=== PATIENT | male | born 1950 | race Caucasian/White ===

== ENCOUNTER 2020-06-16 11:41 | Day surgery (SDC) | payer OTHER, SELFPAY ==
[2020-06-09 09:29] VITALS: BMI 23.9
--- NOTE | 2020-06-11 15:26 | P.CONAN_ITS ---
Documented by User: Alisha Argueta 06/11/20 15:27 HPI - Anesthesia Eval Consult details Narrative: 69yo M for EGD and Colonoscopy [facility] Past Medical History Medical History Arthritis COPD (chronic obstructive pulmonary disease) Cough Former cigarette smoker GERD (gastroesophageal reflux disease) Headache High cholesterol History of anxiety History of Roblero's esophagus History of depression Hx of nephrolithotomy with removal of calculi Hx of pneumococcal pneumonia Hx of renal calculi Hypertension Left shoulder pain ADELFO on CPAP Pneumonia PPD positive, treated Surgical History Surgical History (Updated 06/09/20 @ 09:19 by Soniya Fan) Hx of appendectomy S/P left rotator cuff repair Social History Social History Smoking Status: Former smoker Smoking Quit Date: 1996 Use of substances other than those prescribed or required for medical reasons: No Have you been hit, kicked, punched, or otherwise hurt by someone within the past year? If so, by whom?: No Advance Directives: No Advance Directives Information Provided: No Advance Directives on File: No Recently lost weight without trying: No Meds Allergies Allergy/AdvReac Type Severity Reaction Status Date / Time Penicillins [PENICILLINS] Allergy Severe HANNA Verified 06/16/20 12:24 ESSENCE SYNDROME Sulfa (Sulfonamide Allergy Severe HANNA Verified 06/16/20 12:24 Antibiotics) ESSENCE [SULFA (SULFONAMIDE SYNDROME ANTIBIOTICS)] Home Medications Medication Instructions Recorded Confirmed Type acetaminophen 500 mg PO Q6H PRN 06/09/20 06/09/20 History albuterol mcg INHALATION 06/09/20 History clonazepam 0.5 mg PO DAILY 06/09/20 06/09/20 History gabapentin 600 mg PO BEDTIME 06/09/20 06/09/20 History magnesium oxide 240 mg 06/09/20 History meloxicam 15 mg PO DAILY 06/09/20 06/09/20 History omeprazole 20 mg PO DAILY 06/09/20 06/09/20 History quetiapine 100 mg PO DAILY 06/09/20 06/09/20 History sertraline 100 mg PO DAILY 06/09/20 06/09/20 History simvastatin 80 mg PO BEDTIME 06/09/20 06/09/20 History tiotropium bromide [Spiriva 2 puff INHALATION DAILY 06/09/20 06/09/20 History Respimat] tramadol 50 mg PO Q6H PRN 06/09/20 06/09/20 History Exam Exam Date and Time: June 11, 2020 1526 Height,Weight and Vital Signs: Height 5 ft 9 in Weight 73.482 kg Assessment and Plan Assessment Anesthesia Assessment: Chart Reviewed Documented by User: Sriram Beaver MD 06/16/20 12:30 [facility] Past Medical History Medical History Arthritis COPD (chronic obstructive pulmonary disease) Cough Former cigarette smoker GERD (gastroesophageal reflux disease) Headache High cholesterol History of anxiety History of Roblero's esophagus History of depression Hx of nephrolithotomy with removal of calculi Hx of pneumococcal pneumonia Hx of renal calculi Hypertension Left shoulder pain ADELFO on CPAP Pneumonia PPD positive, treated Surgical History Surgical History (Updated 06/09/20 @ 09:19 by Soniya Fan) Hx of appendectomy S/P left rotator cuff repair Social History Social History Smoking Status: Former smoker Smoking Quit Date: 1996 Use of substances other than those prescribed or required for medical reasons: No Have you been hit, kicked, punched, or otherwise hurt by someone within the past year? If so, by whom?: No Advance Directives: No Advance Directives Information Provided: No Advance Directives on File: No Recently lost weight without trying: No Meds Allergies Allergy/AdvReac Type Severity Reaction Status Date / Time Penicillins [PENICILLINS] Allergy Severe HANNA Verified 06/16/20 12:24 ESSENCE SYNDROME Sulfa (Sulfonamide Allergy Severe HANNA Verified 06/16/20 12:24 Antibiotics) ESSENCE [SULFA (SULFONAMIDE SYNDROME ANTIBIOTICS)] Home Medications Medication Instructions Recorded Confirmed Type acetaminophen 500 mg PO Q6H PRN 06/09/20 06/09/20 History albuterol mcg INHALATION 06/09/20 History clonazepam 0.5 mg PO DAILY 06/09/20 06/09/20 History gabapentin 600 mg PO BEDTIME 06/09/20 06/09/20 History magnesium oxide 240 mg 06/09/20 History meloxicam 15 mg PO DAILY 06/09/20 06/09/20 History omeprazole 20 mg PO DAILY 06/09/20 06/09/20 History quetiapine 100 mg PO DAILY 06/09/20 06/09/20 History sertraline 100 mg PO DAILY 06/09/20 06/09/20 History simvastatin 80 mg PO BEDTIME 06/09/20 06/09/20 History tiotropium bromide [Spiriva 2 puff INHALATION DAILY 06/09/20 06/09/20 History Respimat] tramadol 50 mg PO Q6H PRN 06/09/20 06/09/20 History Exam Airway Mallampati Class: II TM Dist: >3cm Neck ROM: Full Denture: Upper and Lower Heart: rrr Lungs: nl Other: ao Assessment and Plan Assessment Anesthesia Assessment: Anesthesia Plan Discussed and Chart Reviewed Final Anesthetic Review NPO: Yes ASA Class: III Final Preanesthetic Review: No Changes in Pt Med Stat, Meds/Allgs Chart Reviewed, Consent Obtained/Reviewed and Anes Risks/Benef Reviewed Patient Risk: Intermediate Procedure Risk: Intermediate Anesthetic Plan Anesthetic Plan: MAC: Disposition: Standard PACU
[2020-06-16 12:19] VITALS: BP 127/76; PULSE 61; RESP 18; TEMP 36.3; O2SAT 96
[2020-06-16] MEDS: Lactated Ringers 1,000 ML 100 ML IVCONT (12:28)
--- NOTE | 2020-06-16 13:51 | MHC.SHP ---
Pre-Procedural Eval Section B Chief Complaint: Screening, Chronic Horseness Details of Present Illness: EGD followup Roblero's esophagus--Increased GERD sx Colon cancer screening Moderate dyspnea, COPD Relevant Family History (Specify if Yes): No Relevant Social History: Tobacco Use (current non smoker) Present Medications: see Short Stay Collaborative assessment Medical History: Significant History (Copd with chronic bronchitis, Anxiety, GERD, Hypertension) History of Previous Operations: No relevant previous surgery Allergies: Allergies Allergy/AdvReac Type Severity Reaction Status Date / Time Penicillins [PENICILLINS] Allergy Severe HANNA Verified 06/16/20 12:24 ESSENCE SYNDROME Sulfa (Sulfonamide Allergy Severe HANNA Verified 06/16/20 12:24 Antibiotics) ESSENCE [SULFA (SULFONAMIDE SYNDROME ANTIBIOTICS)] Review of Systems Sugical H&P ROS: Negative: Constitution and Neurological and Yes, Specify: Cardiovascular (Hypertension), Respiratory (COPD), Psychiatric (Anxiety) and Gastrointestinal (hx short segment Roblero's) Exam Surgical H&P Exam: Normal: HEENT, Normal: Heart and Normal: Abdomen and Significant Findings: Lungs (Bronchitic cough with rhonchi) Plan Diagnosis/Plan: Unchanged Patient has been examined and remains a candidate for the planned procedures YES
--- NOTE | 2020-06-16 13:56 | PM.PROC ---
Brief Operative Note Date of procedure: 06/16/20 Pre-op diagnosis: Increased GERD,?Roblero's; Colon cancer screening Post-op diagnosis: other (Diminutive polyps, Hiatal Hernia (no Roblero's +) superficial gastrititis) Procedure: EGD with bx, Colonoscopy with excisional polypectomy x 3 Diminutive Anesthesia: MAC (CARMINE Casey) Surgeon: Shakira Engel Estimated blood loss (mL): 5 Pathology: other (Random gastric, Colonic polyps) Condition: stable Disposition: PACU
[2020-06-16 15:02] VITALS: BP 95/58; PULSE 61; RESP 12; TEMP 36.6; O2SAT 99
[2020-06-16 15:15] VITALS: BP 126/90; PULSE 59; RESP 18; TEMP 36.7; O2SAT 97
--- NOTE | 2020-06-16 15:41 | HO.POSTANES ---
Post Anesthesia Evaluation Post Anesthesia Evaluation Vital Signs: Vital Signs Temp Pulse Resp BP Pulse Ox 06/16/20 15:15 98.0 F 59 18 126/90 H 97 06/16/20 15:02 97.9 F 61 12 95/58 L 99 06/16/20 12:19 97.3 F 61 18 127/76 96 Anesthesia: Monitored Mental Status: Awake Pain Control: Satisfactory Nausea/Vomiting: None Hydration: Adequate Anesthesia-Related Issues: No Anes. Related Issues
--- NOTE | 2020-06-19 12:05 | OP_ITS ---
SURGEON: Shakira Engel MD ESTIMATED BLOOD LOSS: Minimal blood loss. COMPLICATIONS: None. ANESTHESIA: Monitored. ANESTHESIOLOGIST: Debi Casey CRNA ASSISTANTS:NONE SPECIMENS: Specimens removed; random gastric; colonoscopy specimen, cecal, diminutive polyps x2; transverse colon, diminutive polyp. PREOPERATIVE DIAGNOSES: Surveillance esophagogastroduodenoscopy, questionable history of short-segment Roblero's, Recent increased breakthrough gastroesophageal reflux disease symptoms; Colon Cancer Screening. POSTOPERATIVE DIAGNOSES: Small hiatal hernia, superficial gastritis (no clear short-segment Roblero's); colonoscopy findings, cecal polyps. MEDICAL ART THERAPIST: Dr. Engel. PROCEDURES PERFORMED: EGD with biopsy, colonoscopy with excisional polypectomy x2 using cold biopsy forceps. DESCRIPTION OF PROCEDURE: Video endoscope was introduced without difficulty. It was navigated into the posterior pharynx and into the esophagus, down to the level of the GE junction. GE junction was slightly irregular; however, immediately distal to this was a hiatal hernia. On entering the stomach, there was mild erythema of the body and antrum. This area was biopsied. Duodenal bulb and duodenum appeared endoscopically normal. FINDINGS: Digital rectal exam revealed prostate to be not well felt. Video sphincter tone was slightly decreased. Video colonoscope was introduced without difficulty. It was navigated into the rectosigmoid. Prep was only fair. There was residual turbid fluid and slightly thickened liquid throughout the colon, requiring multiple areas of flushing and suctioning. The scope was advanced to the level of the cecum. Appendiceal orifice was seen. Ileocecal valve was well seen. A diminutive polyp was removed in the region from the area of the ileocecal valve and just in that same area. There was also a polyp removed in the transverse colon. Anorectal verge was clear. PLAN: Current repeat asymptomatic screening will be dictated by the pathology of the polyps. Given the prep, I would suggest the patient in this age range have a repeat screening in 5 years. GRAFT OR IMPLANTS: No grafts or implants. CONDITION: Postprocedure, stable. Shakira Engel MD MEN/MODL / [id number] [facility]
== END 2020-06-16 15:39 | disposition home or self-care (01) ==
PROVIDERS: Internal Medicine Gastroenterology; Visit Provider Internal Medicine
PROC: (CPT 45380; principal; 2020-06-16 13:20)
DX: Z12.11 Encounter for screening for malignant neoplasm of colon (principal); D12.0 Benign neoplasm of cecum; K63.5 Polyp of colon; R49.0 Dysphonia; K21.9 Gastro-esophageal reflux disease without esophagitis; K29.30 Chronic superficial gastritis without bleeding; K44.9 Diaphragmatic hernia without obstruction or gangrene; J44.9 Chronic obstructive pulmonary disease, unspecified; I10 Essential (primary) hypertension; G47.33 Obstructive sleep apnea (adult) (pediatric); E78.00 Pure hypercholesterolemia, unspecified; R76.11 Nonspecific reaction to tuberculin skin test without active tuberculosis; Z79.51 Long term (current) use of inhaled steroids; Z79.899 Other long term (current) drug therapy; Z87.891 Personal history of nicotine dependence; Z87.442 Personal history of urinary calculi; Z88.0 Allergy status to penicillin; Z88.2 Allergy status to sulfonamides
CPT/HCPCS: 45380; 43239; 88305; 88342

== ENCOUNTER → 2020-07-23 11:22 | Outpatient (BNVA) | payer OTHER, SELFPAY | PROVIDERS: Visit Provider Physician Assistant | DX: Z76.89 Persons encountering health services in other specified circumstances (principal) ==

== ENCOUNTER → 2023-03-13 09:13 | Outpatient (BNVA) | payer OTHER, SELFPAY | PROVIDERS: Visit Provider Physician Assistant ==

== ENCOUNTER 2023-04-24 09:19 | Outpatient (AMB) | payer OTHER, SELFPAY ==
--- NOTE | 2023-04-24 09:24 | MHC.OFFVIS ---
Intake Vital Signs 04/24/23 09:28 Height 5 ft 9 in Weight 157 lb BMI 23.2 BP 119/63 Blood Pressure Location Lt brachial Position Sitting Pulse 69 Intake Visit Reasons: follow up from 03/13 Intake Note: Patient follow up for Tubular adenoma Patient cc: coughing and SOB. Denies any GI issues. 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: No Accompanied by: Self / Same As Patient Allergies Penicillins [PENICILLINS] Allergy (Severe, Verified 04/24/23 09:23) HANNA ESSENCE SYNDROME Sulfa (Sulfonamide Antibiotics) [SULFA (SULFONAMIDE ANTIBIOTICS)] Allergy (Severe, Verified 04/24/23 09:23) HANNA ESSENCE SYNDROME Medication List - Last Reconciled 04/24/23 by Yina Tolentino PA-C acetaminophen 500 mg PO Q6H PRN albuterol 90 mcg/actuation mcg inhalation clonazepam 0.5 mg PO DAILY gabapentin 600 mg PO BEDTIME magnesium oxide 240 mg meloxicam 15 mg PO DAILY omeprazole 20 mg PO BID 30 days peg 3350-electrolytes 236-22.74-6.74 -5.86 gram (Golytely) 240 mL PO Q10M quetiapine 100 mg PO DAILY sertraline 100 mg PO DAILY simvastatin 80 mg PO BEDTIME tiotropium bromide 2.5 mcg/actuation (Spiriva Respimat) 2 puffs inhalation DAILY tramadol 50 mg PO Q6H PRN HPI HPI Comments History of Present Illness Details A 72 y/o male with hx Barretts- referred back from [place] for EGD - due 2022-persistent reflux-omeprazole 20 bid- break through-he has a frequent cough, he does wake up at night with worse acid reflux, drinks a lot of caffeine trying to cut back. He does not smoke or drink etoh- SOBOE- he says on going for years- Saw [facility] about 4 wks ago- had a CXR- no TX Bowels are normal Appetite good-despite acid reflux, Goes to casino weekly- No nausea, vomiting, hematemesis, hematochezia fever chills Last Colonoscopy-EGD 2019- Dr. Engel- repeat colon 5 years- EGD 3 years - Reviewed procedure report and pathology- A.? Stomach, random, biopsy:? Antral-type mucosa within normal limits; no Helicobacter organisms seen. B.? Cecum, polypectomies:? Fragments of tubular adenomas; no high grade dysplasia or carcinoma seen. C.? Colon, transverse, polypectomy:? Colonic mucosa with mild surface hyperplastic changes. PFSH Medical History (Updated 04/24/23 @ 10:10 by Yina Tolentino PA-C) Arthritis COPD (chronic obstructive pulmonary disease) Cough Former cigarette smoker GERD (gastroesophageal reflux disease) Headache High cholesterol History of anxiety History of Roblero's esophagus History of depression Hx of nephrolithotomy with removal of calculi Hx of pneumococcal pneumonia Hx of renal calculi Hypertension Left shoulder pain ADELFO on CPAP Pneumonia PPD positive, treated Tubular adenoma Surgical History Hx of appendectomy S/P left rotator cuff repair Social History Household Members Other:: friends Alcohol intake: former Patient Tobacco Use Status: Former Tobacco user Tobacco use type: Cigarette Review of Systems Const All systems reviewed & are unremarkable except as noted in HPI and below Card Denies chest pain and Reports dyspnea on exertion Resp Reports dyspnea on exertion GI Denies abdominal pain, Denies change in bowel habits, Reports heartburn, Denies nausea and Denies vomiting Physical Exam Vital Signs: Last Vital Signs Pulse 69 04/24/23 09:28 BP 119/63 04/24/23 09:28 BMI result Body Mass Index 23.2 Const General: comfortable Orientation/consciousness: patient oriented x3 Limitations: no limitations Eyes Sclerae: sclerae normal Resp Effort & Inspection: normal respiratory effort and able to speak in complete sentences Auscultation: clear to auscultation bilaterally, no rales, no rhonchi and no wheezes Cardio Rate: regular rate Rhythm: regular rhythm Heart sounds: S1 normal heart sound present and S2 normal heart sound present GI Palpation (GI): Soft to palpation and nontender Auscultation: normal bowel sounds Neuro General: patient oriented x3 Extrem General: Yes full ROM Psych Mental Status: mental status grossly normal Speech and movement: Clear speech present Affect: Labile affect present Attitude: cooperative Thought process: Normal thought process present Thought content: Normal thought content present Results Reviewed Results Reviewed: Name:Elvis Clifford Specimen #:?[id number] Age/Sex: 69/M Attending: Sriram Beaver MD : 1950 Submitted by: Shakira Engel MD Collected: 06/16/20 MR #: [id number] Received: 06/17/20 Status: [facility] Location: [facility] Diagnosis A.? Stomach, random, biopsy:? Antral-type mucosa within normal limits; no Helicobacter organisms seen. B.? Cecum, polypectomies:? Fragments of tubular adenomas; no high grade dysplasia or carcinoma seen. C.? Colon, transverse, polypectomy:? Colonic mucosa with mild surface hyperplastic changes. Assessment & Plan Assessment & Plan (1) History of Roblero's esophagus: Comment: Very pleasant, alert Gent HX Barrettts-unable to see documentation Last EGD 2019- rec 3 year repeat- Dr. Engel-repeat EGD 3 years-[place] refer Code(s): Z87.19 - Personal history of other diseases of the digestive system (2) Tubular adenoma: Comment: tubular adenoma his prep was not great- repeat asymptomatic colonoscopy in 5 years- 2024 Code(s): D36.9 - Benign neoplasm, unspecified site (3) SOB (shortness of breath) on exertion: Comment: F/u pulmonary Code(s): R06.02 - Shortness of breath Plan: Has follow-up with pulmonology- (4) GERD (gastroesophageal reflux disease): Comment: Continue PPI, avoid culprits, reviewed precaution Code(s): K21.9 - Gastro-esophageal reflux disease without esophagitis Plan EGD-anesthesia clearance Orders: Orders Complete Blood Count Auto Diff Today D36.9 - Benign neoplasm, unspecified site, R06.02 - Shortness of breath, Z87.19 - Personal history of other diseases of the digestive system EDG - GI Use Only Today K21.9 - Gastro-esophageal reflux disease without esophagitis, Z87.19 - Personal history of other diseases of the digestive system Patient Instructions: persistent acid reflux follows up after recent EGD and colonoscopy. EGD cont omeprazole 20 mg, bid -reflux precautions avoid culprits to include reducing caffeine intake coffee try to cut back tubular adenoma his prep was not great would repeat asymptomatic colonoscopy in 5 years- 2024 Coding Level of Care Code Est Pt Level 3 (35859) Diagnoses History of Roblero's esophagus Z87.19 Tubular adenoma D36.9 SOB (shortness of breath) on exertion R06.02 GERD (gastroesophageal reflux disease) K21.9 Time Spent (min) 30
[2023-04-24 09:28] VITALS: BP 119/63; PULSE 69; BMI 23.2
== END 2023-04-24 10:44 | disposition home or self-care (01) ==
PROVIDERS: Visit Provider Physician Assistant
DX: Z87.19 Personal history of other diseases of the digestive system (principal); D36.9 Benign neoplasm, unspecified site; R06.02 Shortness of breath; K21.9 Gastro-esophageal reflux disease without esophagitis
CPT/HCPCS: 99213

== ENCOUNTER → 2023-04-24 09:19 | Outpatient (BNVA) | payer OTHER, SELFPAY | PROVIDERS: Visit Provider Physician Assistant | DX: K21.9 Gastro-esophageal reflux disease without esophagitis (principal); R06.02 Shortness of breath; D36.9 Benign neoplasm, unspecified site; Z87.19 Personal history of other diseases of the digestive system | CPT/HCPCS: 99212 ==

== ENCOUNTER 2023-08-29 09:39 | Day surgery (SDC) | payer OTHER, SELFPAY ==
[2023-08-23 20:00] VITALS: BMI 22.9
[2023-08-29 10:13] VITALS: BP 130/71; PULSE 63; RESP 16; TEMP 36.3; O2SAT 98
[2023-08-29 10:14] VITALS: BMI 22.7
[2023-08-29] MEDS: Lactated Ringers 1,000 ML 80 ML IVCONT (10:17)
--- NOTE | 2023-08-29 10:55 | P.CONAN_ITS ---
[facility] Active Problems Active Problems: All Active Problems (Updated 08/23/23 @ 20:00 by Indira Cordova RN) SOB (shortness of breath) on exertion (Acute) GERD (gastroesophageal reflux disease) (Acute) History of Roblero's esophagus (Acute) Tubular adenoma (Acute) Past Medical History Medical History Pulmonary nodules Migraine Tubular adenoma Pneumonia Hx of nephrolithotomy with removal of calculi Former cigarette smoker Cough Left shoulder pain Arthritis History of Roblero's esophagus GERD (gastroesophageal reflux disease) Hx of renal calculi Headache History of anxiety History of depression Hx of pneumococcal pneumonia PPD positive, treated ADELFO on CPAP COPD (chronic obstructive pulmonary disease) High cholesterol Hypertension Family History Family history of problems with anesthesia: No Surgical History Surgical History History of colonoscopy H/O esophagogastroduodenoscopy S/P left rotator cuff repair Hx of appendectomy History of Problems with Anesthesia: No Social History Social History Household Members Other:: friends Alcohol intake: former Patient Tobacco Use Status: Former Tobacco user Quit Date: 1996 Tobacco use type: Cigarette Smoked in Last 30 Days: No Use of substances other than those prescribed or required for medical reasons: No Are you DNR?: No Advance Directives: No Advance Directives Information Provided: Yes Advance Directives on File: No Recently lost weight without trying: No Nutrition Risks: No Nutritional Risk Meds Allergies Allergy/AdvReac Type Severity Reaction Status Date / Time Penicillins [PENICILLINS] Allergy Severe HANNA Verified 04/24/23 09:23 ESSENCE SYNDROME Sulfa (Sulfonamide Allergy Severe HANNA Verified 04/24/23 09:23 Antibiotics) ESSENCE [SULFA (SULFONAMIDE SYNDROME ANTIBIOTICS)] morphine Allergy Anaphylaxis Verified 08/29/23 10:18 Active Medications: Current Medications Lactated Ringer's (Lr) 1,000 mls @ 80 mls/hr IVCONT .[id number] PAYTON Last Admin: 08/29/23 10:17 Dose: 80 mls/hr Home Medications Medication Instructions Recorded Confirmed Last Taken Type acetaminophen 500 mg capsule 500 mg PO Q6H PRN Pain 06/09/20 08/23/23 Unknown History clonazepam 0.5 mg tablet 0.5 mg PO DAILY 06/09/20 08/23/23 Unknown History gabapentin 600 mg tablet 600 mg PO BEDTIME 06/09/20 08/23/23 Unknown History magnesium oxide 240 mg PO DAILY 06/09/20 08/23/23 Unknown History quetiapine 100 mg tablet 100 mg PO DAILY 06/09/20 08/23/23 Unknown History sertraline 100 mg tablet 100 mg PO DAILY 06/09/20 08/23/23 Unknown History simvastatin 80 mg tablet 80 mg PO BEDTIME 06/09/20 08/23/23 Unknown History tiotropium bromide 2.5 2 puff inhalation DAILY 06/09/20 08/23/23 Unknown History mcg/actuation mist for inhalation (Spiriva Respimat) albuterol sulfate 90 mcg/actuation 2 puff inhalation Q4-6H PRN 08/23/23 08/23/23 Unknown History aerosol inhaler Shortness Of Breath Or Wheezing Exam Height,Weight and Vital Signs: Height 5 ft 9 in Weight 69.626 kg Last Vital Signs Temp 97.4 F 08/29/23 10:13 Pulse 63 08/29/23 10:13 Resp 16 08/29/23 10:13 BP 130/71 08/29/23 10:13 Pulse Ox 98 08/29/23 10:13 O2 Del Method Room Air 08/29/23 10:13 Airway Mallampati Class: II TM Dist: >3cm Neck ROM: Full Denture: Upper and Lower Heart: rrr Lungs: clear Assessment and Plan Final Anesthetic Review Family History of Problems with Anesthesia: No History of Problems with Anesthesia: No NPO: Yes ASA Class: III Final Preanesthetic Review: No Changes in Pt Med Stat, Meds/Allgs Chart Reviewed, Consent Obtained/Reviewed and Anes Risks/Benef Reviewed Patient Risk: Intermediate Procedure Risk: Low Anesthetic Plan Anesthetic Plan: MAC: Disposition: Standard PACU
--- NOTE | 2023-08-29 11:25 | MHC.SHP ---
Pre-Procedural Eval Section A Date of Service: 08/29/23 Section B Chief Complaint: Gastro-esophageal reflux disease without esophagit Relevant Family History (Specify if Yes): No Relevant Social History: None Present Medications: see Short Stay Collaborative assessment Medical History: Significant History (Pulmonary nodules Migraine Tubular adenoma Pneumonia Hx of nephrolithotomy with removal of calculi Former cigarette smoker Cough Left shoulder pain Arthritis History of Roblero's esophagus GERD (gastroesophageal reflux disease) Hx of renal calculi Headache History of anxiety History of depression Hx) History of Previous Operations: Relevant previous surgery/procedure and date(s) (History of colonoscopy H/O esophagogastroduodenoscopy S/P left rotator cuff repair Hx of appendectom) Allergies: Allergies Allergy/AdvReac Type Severity Reaction Status Date / Time Penicillins [PENICILLINS] Allergy Severe HANNA Verified 04/24/23 09:23 ESSENCE SYNDROME Sulfa (Sulfonamide Allergy Severe HANNA Verified 04/24/23 09:23 Antibiotics) ESSENCE [SULFA (SULFONAMIDE SYNDROME ANTIBIOTICS)] morphine Allergy Anaphylaxis Verified 08/29/23 10:18 Review of Systems Sugical H&P ROS: Negative: Constitution, Cardiovascular, Respiratory, Neurological, Psychiatric, Hem-Onc, Allergic/Immunologic, Gastrointestinal, Genitourinary, Musculoskeletal, Integumentary, Endocrine and Eyes/Ears/Nose/Throat Exam Surgical H&P Exam: Normal: HEENT, Normal: Heart, Normal: Lungs, Normal: Extremities, Normal: Abdomen, Normal: Skin and Normal: Neurological Plan Diagnosis/Plan: Unchanged I have reviewed the history and physical and performed a pertinent physical examination on my patient. No changes have occurred unless specified. Time Spent With Patient Time: Total time managing care of this patient today ____ minutes.
--- NOTE | 2023-08-29 11:27 | W.PM.OPN ---
Operative Note Operative Note Date of Service: 08/29/23 Narrative: Procedure Description: EGD Indication: meyer esophagus Anesthesia: MAC FLEXIBLE TRANSORAL UPPER GASTROINTESTINAL ENDOSCOPY UPPER ENDOSCOPY Consent: Indications for the procedure and potential complications of bleeding, perforation, reaction to medications and missed diagnosis were discussed with the patient and informed consent was obtained. Instrument: Olympus GIF H 190 J mid size upper endoscope Monitoring: Vital signs and clinical assessment, continuous EKG monitoring, Pulse oximetry, Carbon Dioxide monitoring and blood pressure monitoring were done throughout the procedure. Procedure: The patient was placed in the left lateral decubitis position and pre-procedure medications were administered and a bite block was placed. The endoscope was inserted into the mouth and advanced under direct vision to the third part of duodenum. A careful inspection was made as the upper endoscope was withdrawn including a retroflexed examination of the proximal stomach; Findings and interventions are described below. Findings: Larynx:normal Esophagus: GE junction at 36 cm, diaphragm hiatus at 38 cm, consistent with 2 cm sliding hiatal hernia, mild esophagitis noted, bx taken. Few small islands of salmon pink tissue consistent with possible barretts, bx taken Stomach: Patchy gastric erythema. Biopsies were obtained. Grade 2 flap valve on retroflexed examination of the cardia. Few small fundic gland poylps noted Duodenum: Normal bulb and descending duodenum, Intervention: Biopsies as noted above Impression/Findings: mild esophagitis small hiatal hernia possible barretts fundic gland polyp mild gastritis PLAN: await bx cont with PPI repeat EGD in 3-5 ys
[2023-08-29 11:55] VITALS: BP 102/52; PULSE 55; RESP 16; TEMP 36.1; O2SAT 98
[2023-08-29 12:10] VITALS: BP 121/44; PULSE 61; RESP 18; TEMP 36.8; O2SAT 99
== END 2023-08-29 13:53 | disposition home or self-care (01) ==
PROVIDERS: Visit Provider Internal Medicine Gastroenterology
PROC: 0DJ08ZZ Inspection of Upper Intestinal Tract, Via Natural or Artificial Opening Endoscopic (ICD-10-PCS; CPT 43235; principal; 2023-08-29 13:20)
DX: K21.9 Gastro-esophageal reflux disease without esophagitis (principal); K29.60 Other gastritis without bleeding; K44.9 Diaphragmatic hernia without obstruction or gangrene; K31.7 Polyp of stomach and duodenum; I10 Essential (primary) hypertension; E78.00 Pure hypercholesterolemia, unspecified; G47.33 Obstructive sleep apnea (adult) (pediatric); J44.9 Chronic obstructive pulmonary disease, unspecified; R91.8 Other nonspecific abnormal finding of lung field; Z79.51 Long term (current) use of inhaled steroids; Z79.899 Other long term (current) drug therapy; Z99.89 Dependence on other enabling machines and devices; Z88.0 Allergy status to penicillin; Z88.2 Allergy status to sulfonamides; Z88.5 Allergy status to narcotic agent; Z98.890 Other specified postprocedural states; Z87.442 Personal history of urinary calculi; Z87.891 Personal history of nicotine dependence
CPT/HCPCS: 43239; 88305; 88342; J2704

== ENCOUNTER → 2023-08-29 09:39 | Outpatient (BNV) | payer OTHER, SELFPAY | PROVIDERS: Visit Provider Internal Medicine Gastroenterology | DX: K22.70 Barrett's esophagus without dysplasia (principal); K21.00 Gastro-esophageal reflux disease with esophagitis, without bleeding | CPT/HCPCS: 43239 ==

== ENCOUNTER 2023-10-10 14:07 | Outpatient (AMB) | payer OTHER, SELFPAY ==
[2023-10-10 14:09] VITALS: BP 147/72; PULSE 67
--- NOTE | 2023-10-10 14:09 | A.OFFVIS_ITS ---
Intake Vital Signs 10/10/23 14:09 Height 5 ft 9 in BP 147/72 H Blood Pressure Location Rt brachial Position Sitting Pulse 67 Intake Visit Reasons: f/u Colonoscopy Intake Note: Pt c/o; reports no complaints at this time status post colonoscopyll Ip Architect Required: No Accompanied by: Self / Same As Patient Allergies Penicillins [PENICILLINS] Allergy (Severe, Verified 10/10/23 14:16) HANNA ESSENCE SYNDROME Sulfa (Sulfonamide Antibiotics) [SULFA (SULFONAMIDE ANTIBIOTICS)] Allergy (Severe, Verified 10/10/23 14:16) HANNA ESSENCE SYNDROME morphine Allergy (Verified 10/10/23 14:16) Anaphylaxis Medication List - Last Reconciled 10/10/23 by Yina Tolentino PA-C acetaminophen 500 mg PO Q6H PRN albuterol sulfate 90 mcg/actuation 2 puffs inhalation Q4-6H PRN clonazepam 0.5 mg PO DAILY gabapentin 600 mg PO BEDTIME magnesium oxide 240 mg PO DAILY omeprazole 20 mg PO BID 30 days quetiapine 100 mg PO DAILY sertraline 100 mg PO DAILY simvastatin 80 mg PO BEDTIME tiotropium bromide 2.5 mcg/actuation (Spiriva Respimat) 2 puffs inhalation DAILY HPI HPI Comments History of Present Illness Details A 73 y/o male - f/u after EGD- says he has been fatigued lately- saw pcp in May-nothing specific He has no specific complaints-however does admit he has a bit stressed out over the media/country issues jittery- no pain- SOBOE-ongoing for years Appetite- ok- never ate much- snacks a lot-no change in weight- no N/V/D, abdominal pain- fever or chills PFSH Medical History (Updated 10/11/23 @ 09:43 by Yina Tolentino PA-C) Pulmonary nodules Migraine Tubular adenoma Pneumonia Hx of nephrolithotomy with removal of calculi Former cigarette smoker Cough Left shoulder pain Arthritis History of Roblero's esophagus GERD (gastroesophageal reflux disease) Hx of renal calculi Headache History of anxiety History of depression Hx of pneumococcal pneumonia PPD positive, treated ADELFO on CPAP COPD (chronic obstructive pulmonary disease) High cholesterol Hypertension Surgical History History of colonoscopy H/O esophagogastroduodenoscopy S/P left rotator cuff repair Hx of appendectomy Social History Household Members Other:: friends Alcohol intake: former Patient Tobacco Use Status: Former Tobacco user Quit Date: 1996 Tobacco use type: Cigarette Review of Systems Const All systems reviewed & are unremarkable except as noted in HPI and below Card Denies chest pain and Reports dyspnea on exertion Resp Reports dyspnea on exertion GI Denies abdominal pain, Denies hematochezia, Denies nausea and Denies vomiting Physical Exam Vital Signs: Last Vital Signs Pulse 67 10/10/23 14:09 BP 147/72 H 10/10/23 14:09 Const General: cooperative, comfortable and no acute distress Orientation/consciousness: patient oriented x3 Limitations: no limitations Eyes Conjunctivae: conjunctival abnormal (injected bilat no drainage) Resp Effort & Inspection: normal respiratory effort and able to speak in complete sentences Auscultation: diminished lung sounds Cardio Rate: regular rate Rhythm: regular rhythm Heart sounds: S1 normal heart sound present and S2 normal heart sound present GI Inspection: Yes distended Palpation (GI): Soft to palpation and nontender Auscultation: normal bowel sounds Skin General skin exam: no rashes or lesions noted Neuro General: patient oriented x3 Extrem General: Yes full ROM Psych Appearance: well kempt Speech and movement: Clear speech present Affect: Anxious affect present Thought process: Normal thought process present Thought content: Normal thought content present Results Reviewed Results Reviewed: Impression/Findings: mild esophagitis small hiatal hernia possible barretts fundic gland polyp mild gastritis PLAN: await bx cont with PPI repeat EGD in 3-5 ys Name: Elvis Fontanez Age/Sex: 72/M Attending: Jesus Orozco MD : 1950 Submitted by: Jesus Orozco MD Copies to: MR #: [id number] Status: [facility] Collected: 08/29/23 Location: [facility] Received: 08/29/23 Diagnosis A. Stomach, biopsy: Antral-type and oxyntic mucosa with mild chronic inactive inflammation; no Helicobacter organisms seen. B. GE junction, biopsy: - Cardiofundic-type mucosa with moderate chronic inactive inflammation; no intestinal metaplasia seen. - Squamous mucosa within normal limits. C. Esophagus, distal, biopsy: Squamous epithelium within normal limits; no inflammation seen. Clinical History Pre-Op Dx: Gastro-esophageal reflux disease without esophagitis Post-Op Dx: Mild gastritis, hiatal hernia Microscopic Description A-C. Microscopic sections reviewed. Immunostain for H. pylori is non-reactive (A). Material Received A. Stomach bx's B. G.E junction bx's C. Distal esophagus bx's Gross Description Received in 3 parts. Part A: Received in formalin labeled stomach biopsies 2 pieces of jalloh tissue measuring from 0.2-0.4 cm, all submitted in cassette labeled A. Part B: Received in formalin labeled GE junction 3 pieces of jalloh tissue measuring from 0.1-0.3 cm, all submitted in cassette labeled B. Part C: Received in formalin labeled distal esophagus biopsies 3 pieces of jalloh tissue measuring from 0.1-0.2 cm, all submitted in cassette labeled C. FM Special studies ordered and performed: immunostain for H. pylori on A NOTE: Unless otherwise stated, all tissue is formalin-fixed and paraffin- embedded. Some or all of the immunohistochemical tests Patient: Elvis Fontanez Age/Sex: 72/M MR#: [id number] Page 1 of 2 Assessment & Plan Assessment & Plan (1) History of Roblero's esophagus: Comment: Very pleasant, alert Gent HX Barrettts- rec 3 year repeat- EGD Code(s): Z87.19 - Personal history of other diseases of the digestive system (2) Tubular adenoma: Comment: tubular adenoma his prep was not great- repeat asymptomatic colonoscopy in 5 years- 2024 Code(s): D36.9 - Benign neoplasm, unspecified site (3) GERD (gastroesophageal reflux disease): Comment: Continue PPI, avoid culprits, reviewed precaution Code(s): K21.9 - Gastro-esophageal reflux disease without esophagitis Plan: Sugar somewhat anxious 73-year-old male, history of Roblero's, follows up after recent EGD Reviewed procedure report, pathology recommendation Continue PPI, avoid culprits, reviewed precautions Repeat EGD- 3 years Polyp surveillance- 2024 Follow-up with PCP for any non GI concerns Plan Continue PPI, avoid culprits, reviewed precaution Repeat EGD 3 years Orders: Orders Complete Blood Count Auto Diff 10/10/23 K21.9 - Gastro-esophageal reflux disease without esophagitis, R06.02 - Shortness of breath, Z87.19 - Personal history of other diseases of the digestive system Thyroid Stimulating Hormone 10/10/23 K21.9 - Gastro-esophageal reflux disease without esophagitis, R06.02 - Shortness of breath, Z87.19 - Personal history of other diseases of the digestive system Medications: Refilled omeprazole Take one capsule by mouth twice a day 20 mg PO BID 30 days 60 caps 6RF Patient Instructions: Sugar 73 y/o male- CBC TSH F/U w/ pcp Repeat EGD- 3 years Due for polyp surveillance- 2024 Reflux precautions- reviewed- continue- ppi- refilled Encouraged to call with questions or concerns- Coding Level of Care Code Est Pt Level 3 (76946) Diagnoses History of Roblero's esophagus Z87.19 Tubular adenoma D36.9 GERD (gastroesophageal reflux disease) K21.9 Time Spent (min) 30
== END 2023-10-10 14:50 | disposition home or self-care (01) ==
PROVIDERS: Visit Provider Physician Assistant
DX: Z87.19 Personal history of other diseases of the digestive system (principal); D36.9 Benign neoplasm, unspecified site; K21.9 Gastro-esophageal reflux disease without esophagitis
CPT/HCPCS: 99213

== ENCOUNTER → 2023-10-10 14:07 | Outpatient (BNVA) | payer OTHER, SELFPAY | PROVIDERS: Visit Provider Physician Assistant | DX: K21.9 Gastro-esophageal reflux disease without esophagitis (principal); D36.9 Benign neoplasm, unspecified site; Z87.19 Personal history of other diseases of the digestive system | CPT/HCPCS: 99212 ==